=== PATIENT | male | born 1930 | race Caucasian/White ===

== ENCOUNTER 2016-10-29 00:51 | Inpatient (IN) | payer MEDICARE, OTHER ==
[~2016-10-29] VITALS: Ht 180.3 cm; Wt 83.1 kg
--- NOTE | ~2016-10-29 | HP ---
PATIENT'S NAME: REGINALD MENON [facility] AGE: 86 Y [address] ROOM: [address] [place], [place] [address] LOCATION: GPCU ADMIT DATE: 10/29/2016 History & Physical DISCHARGE DATE: FAMILY PHYSICIAN: Denny Mauro MD ATTENDING PHYSICIAN: Denny Mauro DATE OF SERVICE: CHIEF COMPLAINT: Chest pain. HISTORY OF PRESENT ILLNESS: The patient is an elderly 86-year-old male who looks much younger than his stated age. He has a longstanding history of coronary artery disease. He was feeling well. He woke up, between about 12 and 1 o'clock this morning and notes that he had mid anterior chest pain radiating to his left shoulder. He had no accompanying shortness of breath, diaphoresis, nauseousness, vomiting, or lightheadedness. He does have a history of atherosclerotic ischemic heart disease and had coronary artery disease, and has a previous AL, and he has had two stents placed. He denied any recent colds, coughs, flus, fevers, chills, or sweats, etc,. He denies any shortness of breath. He was seen in the emergency room. They did end up starting him on a nitroglycerin drip which did seem to help improve his symptoms. He has had stuttering chest pain throughout though. He was seen this morning by Dr. Diaz and Dr. Bhatt. He was taken to the catheterization lab. He was found to have some significant coronary artery disease. It looks like the main problem was his LAD and diagonal, and he had a PCI of that and they are going to recommend due to his kidney disease that he have a stage procedure, where he gets a PCI of his circumflex and OM on Monday. That is as long as his creatinine stays stable. He is being given acetylcysteine afterwards. During the night, he did have a little bit of a GI cocktail that did seem to help some of his symptoms. We did continue his current medications and added on an ZAN inhibitor and that as he had not been on one. He is on Brilinta 90 mg twice daily. The patient is feeling better. He still discusses the fact that he does have some vague chest discomfort. PAST MEDICAL HISTORY: ALLERGIES: HE IS MAINLY INTOLERANCE OF STATINS. HE ALSO HAS PROBLEMS WITH ACETAMINOPHEN, OXYCODONE, DARVOCET-N 100, AND HE HAS HAD PROBLEM WITH BOTH CRESTOR AND SIMVASTATIN. CURRENT MEDICATIONS: 1. He is on amlodipine 5 mg daily. PATIENT'S NAME: REGINALD MENON [facility] AGE: 86 Y [address] ROOM: [address] [place], [place] [address] [facility] ADMIT DATE: 10/29/2016 History & Physical DISCHARGE DATE: FAMILY PHYSICIAN: Denny Mauro MD ATTENDING PHYSICIAN: Denny Mauro 2. Dyazide 37.5/25, 1 daily. 3. Finasteride 5 mg daily. 4. Livalo 4 mg daily which he is tolerating. CHRONIC HEALTH PROBLEMS: Include: 1. History of intolerance of statins as mentioned above with myalgias on both simvastatin and Crestor. 2. He has a history of BPH. 3. He has had coronary artery disease, and he is status post stenting of the diagonal vessel on 12/20/2004 at DM1 and DM3. 4. He does have a history of chronic ischemic heart disease. 5. Chronic kidney disease, stage 3. 6. He has also had a history of an angioplasty back in 1990 due to an AL. 7. He has hyperlipidemia. 8. Hypertensive chronic kidney disease. 9. He has had some mild impaired fasting glucose. Diagnosed in 10/2015. PAST SURGICAL HISTORY: Principle procedures include: 1. Circumcision in 2000. 2. Colonoscopy back in 2004, which he does need a repeat of when needed. 3. He has had a DEXA scan that showed a T-score -0.7 at the hip and -0.6 at the lumbar spine. 4. He has had a heart catheterization in 2004, when he had stents placed. 5. He has had a left inguinal hernia repair. 6. A bone graft on his jaw by Dr. Maloney. 7. A stent in the diagonal in 2004. 8. A previous angioplasty back in 1990. 9. He has also had a tonsillectomy. SOCIAL HISTORY: The patient is a nondrinker and nonsmoker. 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 He does drink caffeine regularly. FAMILY HISTORY: Remarkable for cancer in the father and brother. Diabetes in a paternal grandmother. Hyperlipidemia and hypertension which are present in the patient's brother and mother. REVIEW OF SYSTEMS: CONSTITUTIONAL: The patient states that he was really feeling well up until this point. HEENT: Negative. LUNGS: Denies shortness of breath. PATIENT'S NAME: REGINALD MENON [facility] AGE: 86 Y [address] ROOM: [place] [address] LOCATION: GPCU ADMIT DATE: 10/29/2016 History & Physical DISCHARGE DATE: FAMILY PHYSICIAN: Denny Mauro MD ATTENDING PHYSICIAN: Denny Mauro CHEST: Did develop chest pain after midnight tonight which he describes as substernal, heaviness pressure, and radiates into his left arm. GASTROINTESTINAL: Otherwise, negative. GENITOURINARY: Otherwise negative, although we did give the patient some GI cocktail along with some Protonix and that did help some of his symptoms. PHYSICAL EXAMINATION: GENERAL: Shows an alert male, in no acute distress. VITAL SIGNS: He is afebrile and vital signs are stable. HEENT: Normal. LUNGS: Clear. HEART: Regular rate and rhythm. CHEST: Chest wall, no palpable tenderness. ABDOMEN: Bowel sounds positive. He is nontender and nondistended. EXTREMITIES: Negative. He has good peripheral pulses. LABORATORY DATA: The patient's total protein was 6.6, AST 18, ALT 25, alkaline phosphatase 58, total bilirubin 0.7, magnesium 2.4, and EGFR is 38. His glucose was 97, BUN 44, creatinine 1.7, sodium 140, potassium 3.4, chloride 105, CO2 of 28, and calcium 8.3. His CPKs have been 208, 184, 151, and 114. Troponin I's have been less than 0.040 x4. His CK-MB has been 2.5, 2.4, 1.7, and 1.0. Prothrombin time was 10.5 with an INR of 1 with a PTT of 26. His cholesterol this morning came back at 129, triglycerides 37, HDL 59, VLDL 7, and LDL 63 which is excellent. His white count is 8.7 with a hemoglobin of 12.8, hematocrit 37.4, and platelet count of 161,000 with a normal differential and indices. IMAGING STUDIES: X-ray and EKG, I believe showed no acute changes. His chest x-ray was interpreted as no vascular congestion or acute infiltrate on portable AP of the chest. ASSESSMENT: 1. Acute coronary syndrome with no signs of actual damage based on enzymes. 2. Hypertension. 3. Hypertensive chronic kidney disease, stage 3. 4. Hyperlipidemia with history of intolerance to simvastatin and Crestor. 5. History of coronary artery disease, status post angioplasty in 1990 and stents of the DM1 and DM3 on 12/20/2004. He did have a history of a myocardial infarction back in 1990. 6. Hyperlipidemia. 7. History of mild impaired fasting glucose. 8. History of benign prostatic hypertrophy. PATIENT'S NAME: REGINALD MENON [facility] AGE: 86 Y [address] ROOM: [place] [address] [facility] ADMIT DATE: 10/29/2016 History & Physical DISCHARGE DATE: FAMILY PHYSICIAN: Denny Mauro MD ATTENDING PHYSICIAN: Denny Mauro PLAN: We will continue patient's statin along with normal coronary pathway orders. Dr. Diaz and Dr. Bhatt have both seen the patient. The patient has actually already gone to catheterization lab and had intervention to his LAD and diagonal. Because of his kidney disease, they want to do a stage procedure because he does need further evaluation of his circumflex and OM. We will monitor his kidney function. He is on Mucomyst along with IV hydration. We will continue normal cardiac medications and follow the patient closely. I had a long discussion with the patient and his family and all questions were answered at this time. MD TONYA PEREZ/virginial /[id number] D: T: 343 HISTORY & PHYSICAL
--- NOTE | ~2016-10-29 | ER ---
PATIENT'S NAME: [facility] AGE: 86 Y [address] ROOM: [place] [address] LOCATION: GPCU ADMIT DATE: 10/29/2016 ER/Outpatient Report DISCHARGE DATE: FAMILY PHYSICIAN: Denny Mauro MD ATTENDING PHYSICIAN: Denny Mauro Admission date and time documented on the medical record. I saw the patient at 0100 hours. CHIEF COMPLAINT: Mid anterior chest pain, radiating to left shoulder. HISTORY OF PRESENT ILLNESS: The patient is an 86-year-old male, who was woken from sleep at midnight with mid anterior chest pain, radiating to his left shoulder. No accompanying shortness of breath, diaphoresis, nausea, vomiting, or lightheadedness. He does have a history of atherosclerotic ischemic heart disease and coronary artery disease. He has had a previous myocardial infarction. He has had 2 stents. No abdominal pain, nausea, vomiting, diarrhea, or urinary symptomatology. No recent colds, coughs, flus, fever, chills, or sweats. No headache, eyes, ears, nose, throat, neck, or spine pain. No fall or trauma. No joint or muscle swelling, redness, or pain. No skin eruptions or rash. No neuro changes, psych issues, endocrine problems. HOME MEDICATIONS: See attached medication list. ALLERGIES: DARVOCET, PERCOCET, CRESTOR. SOCIAL HISTORY: Nonsmoker, nondrinker. SIGNIFICANT PAST MEDICAL HISTORY: Atherosclerotic ischemic heart disease, coronary artery disease, status post myocardial infarction, syncope, dyslipidemia, benign prostatic hypertrophy, hypertension. OPERATIONS: Inguinal herniorrhaphy; cardiac catheterization with PTCA and stenting; hand surgery. REVIEW OF SYSTEMS: All systems reviewed by me are negative with the exception of those discussed in the history of present illness. PATIENT'S NAME: [facility] AGE: 86 Y [address] ROOM: [place] [address] LOCATION: GPCU ADMIT DATE: 10/29/2016 ER/Outpatient Report DISCHARGE DATE: FAMILY PHYSICIAN: Denny Mauro MD ATTENDING PHYSICIAN: Denny Mauro PHYSICAL EXAMINATION: VITAL SIGNS: Temperature 96.4, pulse 64, respirations 18, blood pressure 177/84, O2 saturation on room air is 97%. Ihsan Scale is 15. HEAD: Normocephalic. EYES, EARS, NOSE, THROAT: Clear. NECK: Negative. LUNGS: Clear. HEART: Regular. No chest wall or ribcage pain to palpation. ABDOMEN: Soft, nontender. Good bowel tones. No organomegaly or abnormal mass palpable. EXTREMITIES: Intact. NEUROVASCULAR: Intact. SKIN: Clear. No skin eruptions or rash. LABORATORY DATA AND X-RAYS: EKG showed sinus rhythm, first-degree AV block. No acute ST elevation, ischemic change, or arrhythmia. Chest x-ray showed no acute infiltrate or changes. We will review x-ray with the radiologist. Laboratory: White count is 8700, 58 segs, 28 lymphs, 9 monos, 4 eos, 1 baso, hemoglobin is 12.8, hematocrit 37.4, platelet count is 161,000. PTT is 26, pro-time is 10.5, and INR 1. CMS was normal except for low calcium 8.3, elevated BUN of 44, elevated creatinine 1.7, low GFR 38. Magnesium of 2.4. CPK was 208. Vksmi-xs-roju cardiac enzymes were normal. EMERGENCY DEPARTMENT COURSE: The patient took aspirin at home. He was started on IV nitroglycerin drip with improvement. IMPRESSION: 1. Chest pain with unstable angina, mid anterior chest pain radiating to the left shoulder. 2. Renal insufficiency. 3. Hypertension. 4. Dyslipidemia. PLAN: Discussed the patient with Dr. Ma for Dr. Mauro. We will admit the patient to PCU telemetry for further evaluation and treatment. Discussion ensued with the patient concerning my findings and recommendations, he understands. PATIENT'S NAME: REGINALD MENON [facility] AGE: 86 Y [address] ROOM: [place] [address] [facility] ADMIT DATE: 10/29/2016 ER/Outpatient Report DISCHARGE DATE: FAMILY PHYSICIAN: Denny Mauro MD ATTENDING PHYSICIAN: Denny Mauro HARPREET LOPEZ MD SDS/modl /[id number] d: 10/29/16 0412 t: 11/01/16 1820, OUTPATIENT REPORT
--- NOTE | ~2016-10-29 | CATH ---
Cardiac Diagnostic + PCI Report Demographics Patient Name LYNSEY Colby Gender Male Date of 1930 Age 86 year(s) Patient Number [id number] Date of Study 10/29/2016 Visit Number [id number] Room Number G[address] [place] [id number] Ht 180.34 cm Wt 78 kg Referring Zunilda Hernandez MD Primary Physician Physician Performing [facility] Secondary Physician Physician Nova Carroll Diagnostic [facility] Assisting Physician Physician Carly Interventional [facility] Physician Shoe Cobbler Physician Nova BAKER Findings and Conclusions Diagnostic Findings and Conclusion L Main: distal 40% stenosis (Non obstructive on iFR) LAD: Proximal at 1st septal branch 70-80% stenosis, mid 50-60% diffuse stenosis. Diagonal ostium has anurysmal dilatation Cx: Proximal 70% stenosis, previous stent in mid Cx is patent OM1 proximal 70-80% stenosis RCA:Dominant; Proximal 30% stenosis, mid 30% stenosis, PLV distally 70% stenosis (small vessel) Diagnostic Recommendations iFR LM, LAD,OM Interventional Findings and Conclusion iFR LM 0.98 iFR LAD 0.83 PCI of LAD given physiologically significant iFR Interventional Recommendations s/p PCI of mLAD with MIRLANDE, distal to edge there is a non flow limiting dissection involving the diagonal side branch, given it is a large sized branch, I placed a MIRLANDE stent at the site of dissection Will stage PCI of Cx/OM on Monday given CKD stage 3 DAPT IV hydration and follow up creatinine Procedure Description The patient was brought to the diagnostic cardiac catheterization-EP laboratory in the fasting, non-sedated state. Informed consent was obtained in the written and verbal form after the risks and benefits were explained. The patient had no further questions and agreed to proceed. The planned puncture-incision site(s) were shaved and prepped with ChloraPrep and draped in the usual sterile manner. Conscious sedation, supplemental oxygen, and pain control medications were delivered by a registered nurse under physician guidance. Surface ECG rhythm, blood pressure measurement, and pulse oximetry were monitored throughout the procedure. Arterial access. The access site on right wrist was infiltrated with lidocaine. The vessel was entered with the Seldinger technique. A sheath was advanced into the vessel and used for catheter placement. Selective left coronary angiography. A catheter was advanced into the left coronary vessel ostium under Fluoroscopic guidance. Contrast was injected by hand. Images were obtained in multiple projections. Selective right coronary angiography. A catheter was advanced into the right coronary vessel ostium under fluoroscopic guidance. Contrast was injected by hand. Images were obtained in multiple projections. iFR measurement was performed. The vessel was entered with a guiding catheter. The iFR wire was normalized and then advanced across the lesion. Measurements were taken in LM, LAD and OM. Angioplasty and Stent Placement: A guiding catheter was used to intubate the vessel. A 0.14 wire was then used to cross the lesion. A balloon catheter was placed across the lesion and inflated. The balloon catheter was then removed. A Drug Eluting Stent was placed and inflated. Post placement angiograms were performed. Arterial artery hemostasis was achieved. The patient was transferred to a regular nursing floor via cart accompanied by a nurse. The patient left the laboratory in stable condition. Diagnostic Cath Status: Urgent Interventional Cath Status: Urgent Procedure Procedure Type Diagnostic procedure:Angiography:, Coronary Angios w/[facility] PCI procedure:Drug Eluting Coronary Stent:, LAD, Additional Imaging:, FFR/iFR:, Initial Vessel, Add'l Vessel Indications: Chest pain. The procedure was explained in detail to the patient. Risks, complications and alternative treatments were reviewed. Written consent was obtained. Medications Reviewed with Patient prior to Procedure. Angiographic Findings Dominance: Right Cardiac Arteries and Lesion Findings LMCA: Lesion on LMCA: Distal subsection.30% stenosis . Pre procedure CRISTOBAL III flow was noted. Post Procedure CRISTOBAL II flow was present. The guidewire cross was successful. FFR + + + + !FFR !Stage/Medication !Dosage ! + + + + !0.98 ! ! ! + + + + Devices used - Verrata Pressure Wire. Number of passes: 1. LAD: Lesion on Mid LAD: Mid subsection.70% stenosis 20 mm length . Pre procedure CRISTOBAL III flow was noted. Post Procedure CRISTOBAL III flow was present. The guidewire cross was successful.The lesion was diagnosed as a high risk lesion.Culprit lesion. FFR + + + + !FFR !Stage/Medication !Dosage ! + + + + !0.83 ! ! ! + + + + Treatment results:Dissection occurred while intervening.It was treated with a stent. Devices used - Verrata Pressure Wire. Number of passes: 1. - Runthrough NS .014 x 180. Number of passes: 1. - Promus Premier 3.0 x 24 Stent. 2 inflation(s) to a max pressure of: 14 zoila. - Emerge Balloon 2.0 x 12. 1 inflation(s) to a max pressure of: 6 zoila. - Runthrough NS .014 x 180. Number of passes: 1. - Emerge Balloon 2.5 x 12. 1 inflation(s) to a max pressure of: 6 zoila. Lesion on 1st Diag: Ostial. reduced to 0%. Pre procedure CRISTOBAL III flow was noted. Post Procedure CRISTOBAL III flow was present. The guidewire cross was successful.The lesion was diagnosed as a high risk lesion. Treatment results:Dissection occurred while intervening.It was treated with a stent. Devices used - Promus Premier 2.25 x 12 Stent. 2 inflation(s) to a max pressure of: 8 zoila. LCx: Lesion on 1st Ob Kary: Proximal subsection.90% stenosis . FFR + + + + !FFR !Stage/Medication !Dosage ! + + + + !0.95 ! ! ! + + + + Devices used - bizk.itrata Pressure Wire. Number of passes: 1. Lesion on Mid CX: Mid subsection.80% stenosis . Lesion on Ob Kary: RCA: PDA normal Lesion on Mid RCA: Mid subsection.40% stenosis . Lesion on 1st RPL: Mid subsection.40% stenosis . Coronary Tree Procedure Data Procedure Date Date: 10/29/2016Start: 11:57 AMEnd: 01:28 PM Entry Locations - Retrograde Percutaneous access was performed through the Right Radial artery (Primary location). A 6 Fr sheath was inserted. Unsuccessful closure attempt was performed using: an R band. Hemostasis was successfully obtained using Mechanical Compression. Closure Comments: R) band applied by Juan, 13 ml of air.. Procedure Medications Order and Administration + + + + + !Time !Medication !Dosage !Route ! + + + + + !10/29/2016 11:53 !Versed !1 mg !I.V. ! !AM ! ! ! ! + + + + + !10/29/2016 11:56 !Oxygen !2 l/min !NC ! !AM ! ! ! ! + + + + + !10/29/2016 12:03 !Radial Nitroglycerin !200 mcg !I.A. ! !PM ! ! ! ! + + + + + !10/29/2016 12:03 !Radial Verapamil !2.5 mg !I.A. ! !PM ! ! ! ! + + + + + !10/29/2016 12:04 !Nitroglycerin ! ! ! !PM ! ! ! ! + + + + + 10/29/2016 12:05 !Heparin (ACC_3) !3000 units !I.V. ! !PM ! ! ! ! + + + + + !10/29/2016 12:06 !0.9% NaCl !500 ml !I.V. bolus ! !PM ! ! ! ! + + + + + 10/29/2016 12:31 !Angiomax (Bivalirudin) !60 mg !I.V. bolus ! !PM !(ACC_5) ! ! ! + + + + + 10/29/2016 12:32 !Angiomax (Bivalirudin) !1.75 mg/kg/hr!I.V. bolus ! !PM !(ACC_5) ! ! ! + + + + + !10/29/2016 01:22 !Brilinta (Ticagrelor) !180 mg !P.O. ! !PM !(ACC_20) ! ! ! + + + + + Devices Used - A5 Fr. BS JR 4 Diag. Catheterwas used for:Right coronary angiography. - A5 Fr. BS JL 3.5 Diag. Catheterwas used for:Left coronary angiography. - A6 Fr. EBU 3.5 Guide Catheterwas used for:Fractional Flow Thorpe measurments. Contrast Material - Isovue [id number] ml Fluoroscopy Time: Diagnostic: 21:12 minutes. Total: 21:12 minutes. Fluoroscopy Dose: Diagnostic: 2365 mGy. Total: 2365 mGy. Estimated Blood Loss: 10 ml. Additional [facility] PCI Information PCI Indication:PCI for high risk Non-STEMI or unstable angina. Medical History Performed Procedures and Imaging Results - No [facility] stress or imaging studies were performed. Allergies - Other:(Percocet, Darvocet and Crestor). Risk Factors The patient risk factors include:prior PCI on 10/29/2016;hypercholesterolemia, hypertension, last creatinine: 1.7 mg/dl, creatinine clearance: 35.05 ml/min, dyslipidemia and prior [place] . Admission Data Admission Date: 10/29/2016 Admission Time: 02:18 AM Admit Source: Emergency department Insurance Payors: Medicare. Admission Medications + +------+-----+---------+---------+ + + !Medication !Dosage!Times!Last !Last !Administered !Comments ! ! ! !Per !Delivery !Delivery ! ! ! ! ! !Day !Date !Time ! ! ! + +------+-----+---------+---------+ + + !ZAN Inhibitor ! ! ! ! !Yes ! ! !(any) ! ! ! ! ! ! ! + +------+-----+---------+---------+ + + !Aspirin (any) ! ! ! ! !Yes ! ! + +------+-----+---------+---------+ + + !Nitrates (iv or! ! ! ! !Yes ! ! !buccal) ! ! ! ! ! ! ! + +------+-----+---------+---------+ + + !Beta Stevo ! ! ! ! !Yes ! ! !(any) ! ! ! ! ! ! ! + +------+-----+---------+---------+ + + !Unfractionated ! ! ! ! !Yes ! ! !Heparin (any) ! ! ! ! ! ! ! + +------+-----+---------+---------+ + + !Bivalirudin ! ! ! ! ! ! ! + +------+-----+---------+---------+ + + Clinical Evaluation Leading to Procedure - The patient's CAD presentation was assessed as: Unstable angina. - The patient's anginal syndrome during the past two weeks was assessed as: Class III according to the [place] Cardiovascular Society Classification System (CCS). Anti-anginal medications were prescribed during the past two weeks. The medication is: Beta Blockers. - The patient has been in a state of heart failure within the past two weeks. - The patient's heart failure status was assessed as NYHA Class IV. VA LV function assessed . Hemodynamics Condition: Rest O2 Consumption: Estimated: 239.21Heart Rate: 89 bpm Pressures (mmHg) +-----+ + !Site !Pressure ! +-----+ + !AO !80/54 (67) ! +-----+ + !AO !120/36 (54) ! +-----+ + Shunts Oxygen Values O2 Capacity 174.08 O2 Consumption 239.21 Signatures dtt: CARLY NESBITT dtd: 10/29/16 1157 Physician Self Edit
--- NOTE | ~2016-10-29 | ER ---
PATIENT'S NAME: REGINALD MENON [facility] AGE: 86 Y [address] ROOM: [place] [address] [facility] AD[facility] DATE: 10/29/2016 ER/Outpatient Report DISCHARGE DATE: FAMILY PHYSICIAN: Denny Mauro MD ATTENDING PHYSICIAN: Denny Mauro ADDENDUM: Accumulated critical care time was 30 minutes. MD HE LLANES/modl /[id number] d: 10/29/16 0509 t: 11/01/16 1822, OUTPATIENT REPORT
--- NOTE | ~2016-10-29 | ECHO ---
Transthoracic Echocardiography Report (TTE) Demographics Patient Name REGINALD MENON Date of Study 10/31/2016 Patient Number [id number] Visit Number [id number] Date of 1930 Room Number G6303 Gender Male Number Age 86 year(s) Referring Anders Bhatt High Lighter Gregg Jorge RVT Physician Physician Interpreting Anders Bhatt Car Tester Physician Supervising Ordering Tammy Colby MD/MLP Physician Nurse Stress Hydro Technician Conclusions Contractility Score Summary Normal Left Ventricular contractility was noted. Summary Normal LV size and systolic function. The estimated left ventricular ejection fraction is 55-60%. Mild concentric left ventricular hypertrophy. Trivial pericardial effusion. Procedure Type of Study TTE procedure:Echo Limited w/o Contrast. Procedure Date Date: 10/31/2016 Start: 09:17 AM Study Location: Inpatient Portable Technical Quality: Adequate visualization Indications:Chest pain. Appropriate Use Criteria: 9 Patient Status: Routine HR: 70 bpm BP: 166/79 mmHg Allergies - Other:(Percocet, Darvocet and Crestor). M-Mode/2D Measurements LV Diastolic Dimension: 3.35 cm LV Systolic Dimension: 2.13 cm LV Septum Diastolic: 1.67 cm LV PW Diastolic: 1.35 cm AO Root Dimension: 2.3 cm AV Cusp Separation: 1.9 cm RV Diastolic Dimension: 2.89 cm LA Dimension: 3.2 cm LVOT: 2 cm Doppler Measurements AV Peak Velocity: 1.02 m/s AV Peak Gradient: 4.16 mmHg TR Velocity:2.42 m/s TR Gradient:23.43 mmHg Findings Left Ventricle Mild concentric left ventricular hypertrophy. Pericardial Effusion Trivial pericardial effusion. Pleural Effusion Possible pleural effusion. Contractility Score LV regional wall motion:(0-Non visualized 1-Normal 2-Hypokinesis 3-Akinesis 4-Dyskinesis 5-Aneurysm) Signature dtt: CHUCKY JARQUIN dtd: 10/31/16916 Physician Self Edit
--- NOTE | ~2016-10-29 | CON ---
[facility] 86 [facility] [address] ROOM: [place] [address] LOCATION: GPCU ADMIT DATE: 10/29/2016 Consultation DISCHARGE DATE: FAMILY PHYSICIAN: Denny Mauro MD ATTENDING PHYSICIAN: Denny Mauro REFERRING PHYSICIAN: SHIV NESBITT MD REASON FOR CONSULT: Chest pain. HISTORY AND PHYSICAL: Mr. Katz is a very pleasant 86-year-old male with history of coronary artery disease, status post percutaneous intervention several years ago. The patient has been symptomatic since last night. The patient stated that he woke up at around 2 a.m. in the morning with substernal chest pain. The patient was given 2 sublingual nitroglycerin; however, the pain persisted. He was subsequently admitted due to persistent chest pain. He was started on heparin and nitro drip. The pain continued and hence Cardiology was consulted. The patient is physically very active. REVIEW OF SYSTEMS: The patient denies any recent visual changes. No history of nausea or vomiting. No history of fever. No history of cough or expectoration. No history of diarrhea. No history of leg pains or leg cramps. No history of syncope. Review of other systems was essentially negative. PAST MEDICAL HISTORY: 1. Coronary artery disease, status post percutaneous intervention several years ago with placement of 2 stents. 2. History of myocardial infarction in the past. 3. BPH. 4. Dyslipidemia. 5. Hypertension. PAST SURGICAL HISTORY: Inguinal herniorrhaphy. PERSONAL HISTORY: Nonsmoker, non-alcoholic. SOCIAL HISTORY: The patient is . Lives with his . FAMILY HISTORY: No family history of premature coronary artery disease. His mother at the age of around 106. His father had cancer. [facility] AGE: 86 Y [address] ROOM: [place] [address] LOCATION: GPCU ADMIT DATE: 10/29/2016 Consultation DISCHARGE DATE: FAMILY PHYSICIAN: Denny Mauro MD ATTENDING PHYSICIAN: Denny Mauro CURRENT MEDICATIONS: As per MAR. PHYSICAL EXAMINATION: GENERAL: On examination, he is awake, alert, and oriented and in no distress. VITAL SIGNS: His pulse rate is 52 beats per minute, blood pressure is 144/70, respiratory rate 18. HEENT: His head is atraumatic and normocephalic. Pupils are bilaterally equal and reactive. Oral mucosa is moist. NECK: No significant jugular venous distention is present. CARDIOVASCULAR: S1 and S2 are audible. They are regular in rate and rhythm. Grade 2/6 ejection systolic murmur is audible in the left parasternal area. RESPIRATORY: Bilateral vesicular breath sounds are audible. ABDOMEN: Abdomen is soft and nontender. Bowel sounds are present. CHEST: The patient does not have any reproducible chest pain. EXTREMITIES: Show no significant pedal edema. NEUROLOGIC: The patient is awake and alert and oriented. No focal neurological deficits noted. SKIN: Skin is warm and dry. LABORATORY DATA: Sodium 140, potassium 3.4, chloride 105, CO2 of 28, BUN 44, creatinine 1.7, AST 18, ALT 25, total cholesterol 129, HDL 59, LDL 63, CPK 114, CK-MB 1, troponin less than 0.04. White blood cell count 8.7, hemoglobin 12.8, platelet count 161. His EKG showed sinus bradycardia at 57 beats per minute. ASSESSMENT: 1. Unstable angina. 2. Coronary artery disease, status post percutaneous coronary intervention. 3. Hypertension. 4. Chronic kidney disease. PLAN: We will continue medical therapy with heparin and nitro drip. Continue aspirin and beta-blockers as tolerated. In view of persistent pain despite medical therapy for unstable angina, we will proceed with left heart catheterization. Discussed with the patient in detail the risks and benefits of heart catheterization and percutaneous intervention. The patient wants to proceed with it. In view of chronic kidney disease with abnormal renal function, the patient is at higher risk for contrast-induced nephropathy, and all this was explained to the patient in detail. We will also obtain 2D [facility] AGE: 86 Y [address] ROOM: G6303 [place], [place] [address] [facility] AD[facility] DATE: 10/29/2016 Consultation DISCHARGE DATE: FAMILY PHYSICIAN: Denny Mauro MD ATTENDING PHYSICIAN: Denny Mauro echocardiogram. Correct hypokalemia. We will make further recommendations depending on the results of this cardiac catheterization and echocardiogram. Thank you Dr. Ma for allowing us in taking part in the care of this pleasant patient. The plan of care was discussed with the patient and his family. MD LYSSA MOYA/steven /[id number] d: 10/29/16 2136 t: 11/03/16 1040, CONSULTATION REPORT
--- NOTE | ~2016-10-29 | DS ---
[facility] A[facility] 86 Y [address] ROOM: [place] [address] LOCATION: GPCU ADMIT DATE: 10/29/2016 Discharge Summary DISCHARGE DATE: 11/01/2016 FAMILY PHYSICIAN: Denny Mauro MD ATTENDING PHYSICIAN: Denny Mauro DISCHARGE DIAGNOSES: 1. Unstable angina with acute coronary syndrome and myocardial infarction. 2. Status post cardiac catheterization x2 with placement of a total of 4 stents. First time, he had a stent placed in the LAD and diagonal, and the second, when the patient had a worsening acute coronary syndrome, was in the circumflex and obtuse marginal. SECONDARY DIAGNOSES: 1. Chronic kidney disease, stage 3. 2. Paroxysmal atrial fibrillation. 3. Hypertension. 4. Hyperlipidemia. 5. History of coronary artery disease. 6. Prediabetes. 7. Benign prostatic hypertrophy. 8. History of intolerance to statins. FOLLOWUP: With Dr. Nova Mcnamara from [facility] in [address] Denny Mauro on at which time he should have a prothrombin time, BMP, and INR. He is also to go home to cardiac rehab. DISCHARGE DIET: Cardiac-prudent diet. ACTIVITY: As tolerates other than normal resting groin precautions from his recent catheterization. DISCHARGE MEDICATIONS: Include: 1. Aspirin, enteric coated, 81 mg daily. 2. Plavix 75 mg daily. 3. Enalapril 2.5 mg at h.s. 4. We are discontinuing his amlodipine. 5. Finasteride 5 mg daily. 6. Metoprolol tartrate 25 mg p.o. b.i.d., which is a new medicine. 7. He is to continue his fish oil. 8. We have him on warfarin 5 mg daily, which is a new medication due to atrial fibrillation, which he has converted from. 9. Livalo 4 mg daily. 10. Triamterene and hydrochlorothiazide 37.5/25 one p.o. q.a.m., #30, with 3 refills. [facility] AGE: 86 Y [address] ROOM: [place] [address] LOCATION: GPCU ADMIT DATE: 10/29/2016 Discharge Summary DISCHARGE DATE: 11/01/2016 FAMILY PHYSICIAN: Denny Mauro MD ATTENDING PHYSICIAN: Denny Mauro PRINCIPAL PROCEDURES: Include cardiac catheterization x2 with placement of a total of 4 drug-eluting stents. He also had an echocardiogram. The patient's echo showed normal left ventricular contractility. Normal LV size and systolic function. LVEF was 55% to 60%. He had mild concentric LVH, trivial pericardial effusion. The patient had cardiac catheterization which showed 4- vessel disease with LAD, diagonal, circumflex, and obtuse marginal. Dr. Nova Mcnamara initially planned on doing a staged procedure. She thought it was mainly the LAD that was causing the problem. So, she put a drug-eluting stent in his LAD and diagonal. Due to his chronic kidney disease, they did not want to give him too much dye. So, they did the initial catheterization on Monday, and the plan was to turn around and do a repeat catheterization on Monday. Unfortunately, the patient's symptoms worsened, and his enzymes started to bump. So, she took him back to the pharmaceutical laboratory technician and then put drug-eluting stents in both the circumflex and obtuse marginal. Since that time, things have continued to improve. His enzymes reached a peak of a CPK of 431, CK-MB peak of 29, and troponin-I peaked at 16.6. The patient's creatinine on discharge is 1.7. HOSPITAL COURSE: As mentioned, the patient was admitted with acute coronary syndrome and was placed on nitroglycerin and heparin. His symptoms persisted. So, he was taken to the pharmaceutical laboratory technician and had stents placed as mentioned in the LAD and diagonal. His symptoms persisted and worsened, and then he was taken back to the pharmaceutical laboratory technician, and they were placed in the circumflex and obtuse marginal. He has done well since that time. He did go into atrial fibrillation. He was started on warfarin. He was on heparin. He also seemed to have some shortness of breath on the Brilinta. So, he was given a loading dose of Plavix and started on Plavix 75 daily. We have adjusted his cardiac medications, and he is overall doing well. He has been up ambulating and is ready for home. We will plan on dismissing him after noon on 11/01/2016 with the above-mentioned medications with followup as mentioned above. He does not have a history of smoking. He does have a previous history though of coronary artery disease. CONDITION ON DISCHARGE: Good. MD TONYA PEREZ/steven /[id number] d: 11/01/16 1731 t: 11/16/16 1346, DISCHARGE SUMMARY
--- NOTE | ~2016-10-29 | CATH ---
Cardiac Diagnostic + PCI Report Demographics Patient Name LYNSEY Colby Gender Male Date of 1930 Age 86 year(s) Patient Number [id number] Date of Study 10/29/2016 Visit Number [id number] Room Number G6[address] [place] [id number] Ht 180.34 cm Wt 78 kg Referring Zunilda Hernandez MD Primary Physician Physician Performing [facility] Secondary Physician Physician Nova BAKER Diagnostic [facility] Assisting Physician Physician Nova BAKER Interventional [facility] Physician Supervisor Particleboard Physician Nova BAKER Findings and Conclusions Diagnostic Findings and Conclusion ACS/Critical Lesion in CX and OM1 with ongoing chest pain. Diagnostic Recommendations PCI of CX and OM1 Interventional Findings and Conclusion S/P PCI of CX and OM1 with MIRLANDE, promus premier 2.5/16 in OM1 and 2.75/24 in prox/mid Cx with excellent results. Interventional Recommendations Patient will be observed overnight. Hydration and followup creatinine. Patient has been instructed to not lift anything more than 5 pounds for 1 week. Aggressive risk factor management. ASA. Statin. Beta Stevo. Alvin Inhibitor. Aggressive control of blood pressure. Patient was transferred to PCU in stable condition. Dual Anti-platelet therapy. Optimization of medical therapy as an outpatient. Cardiac diet . Referral to Cardiac Rehabilitation now and at discharge . I would like to thank Dr. Ma/Dr Mauro for the opportunity to participate in the care of Mr. Katz . Procedure Description The patient was brought to the diagnostic cardiac catheterization-EP laboratory in the fasting, non-sedated state. Informed consent was obtained in the written and verbal form after the risks and benefits were explained. The patient had no further questions and agreed to proceed. The planned puncture-incision site(s) were shaved and prepped with ChloraPrep and draped in the usual sterile manner. Conscious sedation, supplemental oxygen, and pain control medications were delivered by a registered nurse under physician guidance. Surface ECG rhythm, blood pressure measurement, and pulse oximetry were monitored throughout the procedure. Arterial access. The access site was infiltrated with lidocaine. The vessel was entered with the Seldinger technique. A sheath was advanced into the vessel and used for catheter placement. Selective left coronary angiography. A catheter was advanced into the left coronary vessel ostium under Fluoroscopic guidance. Contrast was injected by hand. Images were obtained in multiple projections. Angioplasty and Stent Placement: A guiding catheter was used to intubate the vessel. A 0.14 wire was then used to cross the lesion. A balloon catheter was placed across the lesion and inflated. The balloon catheter was then removed. A Drug Eluting Stent was placed and inflated. Post placement angiograms were performed. Arterial artery hemostasis was achieved. The patient was transferred to a regular nursing floor via cart accompanied by a nurse. The patient left the laboratory in stable condition. Diagnostic Cath Status: Urgent Interventional Cath Status: Urgent Procedure Procedure Type Diagnostic procedure:Angiography:, Coronary Angios PCI procedure:Drug Eluting Coronary Stent:, CFX, OM, PTCA:, CFX, OM Indications: Chest pain. The procedure was explained in detail to the patient. Risks, complications and alternative treatments were reviewed. Written consent was obtained. Medications Reviewed with Patient prior to Procedure. Angiographic Findings Dominance: Right Cardiac Arteries and Lesion Findings LAD: Patent Stents in LAD and DIAGThere is a previous stent on Mid LAD Mid subsection showing wide patency. There is a previous stent on 1st Diag Ostial showing wide patency. LCx: Lesion on 1st Ob Kary: Proximal subsection.80% stenosis 15 mm length reduced to 0%. Pre procedure CRISTOBAL III flow was noted. Post Procedure CRISTOBAL III flow was present. The guidewire cross was successful.The lesion was diagnosed as a moderate risk lesion.Culprit lesion. Devices used - Runthrough NS .014 x 180. Number of passes: 1. - Emerge Balloon 2.5 x 15. 1 inflation(s) to a max pressure of: 6 zoila. - Promus Premier 2.5 x 16 Stent. 1 inflation(s) to a max pressure of: 12 zoila. Lesion on Prox CX: Proximal subsection.80% stenosis 24 mm length reduced to 0%. Pre procedure CRISTOBAL III flow was noted. Post Procedure CRISTOBAL III flow was present. The guidewire cross was successful.The lesion was diagnosed as a moderate risk lesion.Culprit lesion. Devices used - Runthrough NS .014 x 180. Number of passes: 1. - Emerge Balloon 2.5 x 15. 2 inflation(s) to a max pressure of: 6 zoila. - Balloon of Promus Premier 2.75 x 24 Stent. 1 inflation(s) to a max pressure of: 12 zoila. - Promus Premier 2.75 x 24 Stent. 1 inflation(s) to a max pressure of: 12 zoila. RCA: Not Done Coronary Tree Procedure Data Procedure Date Date: 10/29/2016Start: 07:40 PMEnd: 08:43 PM Entry Locations - Retrograde Percutaneous access was performed through the Right Radial artery. A 4 Fr sheath was inserted. Unsuccessful closure attempt was performed using: a Coban dressing following sheath removal. Hemostasis was successfully obtained using Manual Compression. Closure Comments: Dr. Carter. - Retrograde Percutaneous access was performed through the Right Femoral artery (Primary location). A 6 Fr sheath was inserted. Hemostasis was successfully obtained using a pressurized flush bag which was connected to the sheath and it was sutured in place . Closure Comments: Keith. Procedure Medications Order and Administration + + + + + !Time !Medication !Dosage !Route ! + + + + + !10/29/2016 07:30 !0.9% NaCl !100 ml/hr !I.V. drip ! !PM ! ! ! ! + + + + + !10/29/2016 07:33 !Zofran !8 mg !I.V. ! !PM ! ! ! ! + + + + + !10/29/2016 07:37 !Fentanyl !50 mcg !I.V. ! !PM ! ! ! ! + + + + + !10/29/2016 07:46 !Oxygen !2 l/min !NC ! !PM ! ! ! ! + + + + + !10/29/2016 08:09 !Angiomax (Bivalirudin) !60 mg !I.V. bolus ! !PM !(ACC_5) ! ! ! + + + + + 10/29/2016 08:09 !Angiomax (Bivalirudin) !1.75 mg/kg/hr!I.V. drip ! !PM !(ACC_5) ! ! ! + + + + + !10/29/2016 08:33 !Oxygen ! !NC ! !PM ! ! ! ! + + + + + Devices Used - A6 Fr. EBU 3.75 Guide Catheterwas used for:Left coronary angiography. Contrast Material - Isovue 87149 ml Fluoroscopy Time: Diagnostic: 8:30 minutes. Total: 8:30 minutes. Fluoroscopy Dose: Diagnostic: 1008 mGy. Total: 1008 mGy. Estimated Blood Loss: 10 ml. Additional [facility] PCI Information PCI Indication:PCI for high risk Non-STEMI or unstable angina. Medical History Performed Procedures and Imaging Results - No [facility] stress or imaging studies were performed. Allergies - Other:(Percocet, Darvocet and Crestor). Risk Factors The patient risk factors include:prior PCI on 10/29/2016;hypercholesterolemia, hypertension, last creatinine: 1.7 mg/dl, creatinine clearance: 35.05 ml/min, dyslipidemia and prior SD . Admission Data Admission Date: 10/29/2016 Admission Time: 02:18 AM Admit Source: Emergency department Insurance Payors: Medicare. Admission Medications + +------+-----+---------+---------+ + + !Medication !Dosage!Times!Last !Last !Administered !Comments ! ! ! !Per !Delivery !Delivery ! ! ! ! ! !Day !Date !Time ! ! ! + +------+-----+---------+---------+ + + !ALVIN Inhibitor ! ! ! ! !Yes ! ! !(any) ! ! ! ! ! ! ! + +------+-----+---------+---------+ + + !Aspirin (any) ! ! ! ! !Yes ! ! + +------+-----+---------+---------+ + + !Nitrates (iv or! ! ! ! !Yes ! ! !buccal) ! ! ! ! ! ! ! + +------+-----+---------+---------+ + + !Beta Stevo ! ! ! ! !Yes ! ! !(any) ! ! ! ! ! ! ! + +------+-----+---------+---------+ + + !Unfractionated ! ! ! ! !Yes ! ! !Heparin (any) ! ! ! ! ! ! ! + +------+-----+---------+---------+ + + !Bivalirudin ! ! ! ! ! ! ! + +------+-----+---------+---------+ + + Clinical Evaluation Leading to Procedure - The patient's CAD presentation was assessed as: Unstable angina. - The patient's anginal syndrome during the past two weeks was assessed as: Class III according to the [place] Cardiovascular Society Classification System (CCS). Anti-anginal medications were prescribed during the past two weeks. The medication is: Beta Blockers. - The patient has been in a state of heart failure within the past two weeks. - The patient's heart failure status was assessed as NYHA Class IV. Hemodynamics Condition: Rest O2 Consumption: Estimated: 229.03Heart Rate: 76 bpm Pressures (mmHg) +-----+ + !Site !Pressure ! +-----+ + !AO !114/48 (77) ! +-----+ + Shunts Oxygen Values O2 Capacity 174.08 O2 Consumption 229.03 Discharge Data Discharge Date: 11/01/2016 Hospital Status: Inpatient Signatures dtt: NOVA JARQUIN dtd: 10/29/161939 Physician Self Edit
--- NOTE | ~2016-10-29 | ECHO ---
Transthoracic Echocardiography Report (TTE) Demographics Patient Name REGINALD MENON Date of Study 10/29/2016 Patient Number [id number] Visit Number [id number] Date of 1930 Room Number G6303 Accession Number [id number] Gender Male Age 86 year(s) Referring Zunilda Hernandez MD Pick Up Janny Figueredo RVT, Physician NASIR Physician Interpreting Anders Bhatt Body Builder Physician Supervising Ordering Physician Anil Hernandez MD/MLP Nurse Stress Technology Professional Conclusions Contractility Score Summary Normal Left Ventricular contractility was noted. Summary Normal LV/RV size and systolic function .The estimated left ventricular ejection fraction is 60-65%. Mild concentric left ventricular hypertrophy. Diastolic assessment reveals Grade I diastolic dysfunction. No significant valvular abnormalities. No evidence of pericardial effusion. Procedure Type of Study TTE procedure:2D Echocardiogram. Procedure Date Date: 10/29/2016 Start: 09:33 AM Study Location: Inpatient Portable Technical Quality: Adequate visualization Indications:Chest pain. Appropriate Use Criteria: 8 Patient Status: Routine Rhythm: NSR HR: 75 bpm BP: 115/58 mmHg Allergies - Other:(Percocet, Darvocet and Crestor). M-Mode/2D Measurements LV Diastolic Dimension: 4.59 cm LV Systolic Dimension: 2.34 cm LV Septum Diastolic: 1.12 cm LV PW Diastolic: 1.05 cm AO Root Dimension: 2.6 cm Cardiac Output: 5.45 l/min AV Cusp Separation: 1.9 cm RV Diastolic Dimension: 2.89 cm LA volume: 46 ml LVOT: 2.3 cm RV Base: 3.3 cm LVOT VTI: 17.5 cm RV Mid: 3.26 cm LV Stroke volume: 72.67 ml TAPSE: 2.52 cm TDI-S': 11.4 cm/s Doppler Measurements AV Peak Velocity: 1.59 m/s MV Peak E-Wave: 0.81 m/s AV Peak Gradient: 10.11 mmHg MV Peak A-Wave: 0.87 m/s AV Mean Gradient: 5 mmHg MV E/A Ratio: 0.92 LVOT Peak Velocity: 0.76 m/s MV P1/2t: 75 msec TR Gradient:31.58 mmHg PV Peak Velocity: 0.88 m/s Estimated RAP:5 mmHg PV Peak Gradient: 3.06 mmHg Estimated RVSP: 37 mmHg Estimated PASP: 36.58 mmHg E' Septal Velocity: 0.06 m/s A' Septal Velocity: 0.1 m/s E' Lateral Velocity: 0.09 m/s A' Lateral Velocity: 0.1 m/s Findings Left Ventricle Mild concentric left ventricular hypertrophy. Diastolic assessment reveals Grade I diastolic dysfunction. Right Ventricle Normal right ventricle structure and function. Left Atrium Normal left atrial size. There is no evidence of patent foramen ovale or atrial septal defect by color Doppler. Right Atrium Normal right atrial size. IVC measures 1.62 cm with inspiratory collapse. Mitral Valve Normal mitral valve structure and function. Trivial mitral regurgitation by color Doppler. Aortic Valve The aortic valve is mildly sclerotic. There is trivial aortic regurgitation by color Doppler. Tricuspid Valve Mild tricuspid regurgitation by color Doppler. There is mild pulmonary hypertension. The pulmonary pressure (RVSP) is 37 mmHg. Pulmonic Valve Normal pulmonic valve structure and function. Pericardial Effusion No evidence of pericardial effusion. Miscellaneous Visualized portions of the aortic root and ascending aorta appear normal in size. Pleural Effusion No evidence of pleural effusion. Contractility Score LV regional wall motion:(0-Non visualized 1-Normal 2-Hypokinesis 3-Akinesis 4-Dyskinesis 5-Aneurysm) Signature dtt: CHUCKY JARQUIN dtd: 10/29/16 0933 Physician Self Edit
[2016-10-29 01:14] LABS: BASOPHIL % 0.5 %; EOSINOPHIL # 0.4 K/uL (0.0-0.5); EOSINOPHIL % 4.4 %; HEMATOCRIT 37.4 % (33.0-50.0); HEMOGLOBIN 12.8 g/dL (11.0-16.0); IMMATURE GRANULOCYTE % 0.2 %; LYMPHOCYTE # 2.4 K/uL (0.8-4.0); MCH 31.5 pg (27.0-34.0); MCHC 34.2 gm/dL (32.0-36.5); MCV 92.1 fl (83.0-98.0); MONOCYTE # 0.8 K/uL (0.0-1.0); MONOCYTE % 8.7 %; MPV 9.8 fl (9.4-12.4); NEUTROPHIL # (ANC) 5.1 K/uL (1.4-9.0); NEUTROPHIL % 58.2 %; NRBC % 0 /100WBC (0-0.00); PLATELET COUNT 161 K/uL (150-450); RBC 4.06 M/uL (3.50-5.50); WBC 8.7 K/uL (4.0-11.0)
[2016-10-29 01:26] LABS: PROTIME 10.5 SECONDS (9.8-11.4); PTT 26 SECONDS (25-32)
[2016-10-29 01:33] LABS: ALBUMIN 3.5 gm/dL (3.5-5.0); ALK PHOS 58 IU/L (33-138); ALT 25 IU/L (12-78); ANION GAP 10.4 (10.0-19.0); AST 18 IU/L (10-40); BLOOD UREA NITROGEN 44 mg/dL (6-24); CALCIUM 8.3 mg/dL (8.5-10.5); CHLORIDE 105 mMol/L (96-110); CO2 28 mMol/L (22-32); CPK 208 IU/L (35-332); CREATININE 1.7 mg/dL (0.6-1.3); ESTIMATED GFR (MDRD EQUATION) 38; MAGNESIUM 2.4 mg/dL (1.8-2.6); POTASSIUM 3.4 mMol/L (3.7-5.1); SODIUM 140 mMol/L (135-145); TOTAL BILIRUBIN 0.7 mg/dL (0.0-1.5); TOTAL PROTEIN 6.6 g/dL (6.0-8.4)
--- NOTE | 2016-10-29 03:31 | NUR ---
Pt is a 86 year old male admitted to PCU at 0300. Pt experienced some chest pain at 2130 and thought it was indigestion and went to sleep. Around midnight, patient awoke with more chest pain that radiated to his left shoulder. He decided to go to the ER. Upon arrival, patient's chest pain rated at 5/10. Nitro gtt was started, blood pressure went from SBP 170 to SBP 95. Iv fluids started. Morphine 4mg total given for pain. Hx of NE, stents, and hypertension. Allergy to demerol, Percocet, and crestor.
[2016-10-29 03:40] LABS: CPK 184 IU/L (35-332)
[2016-10-29] MEDS ORDERED: HYDROCHLOROTHIA25 MG (03:48)
[2016-10-29] MEDS ORDERED: MAXZIDE-751 TAB PO (03:49)
[2016-10-29] MEDS ORDERED: LIVALO4 MG PO (03:51)
[2016-10-29] MEDS ORDERED: AMLODIPINE BESYL5 MG PO (03:51)
[2016-10-29] MEDS ORDERED: FINASTERIDE5 MG PO (03:52)
[2016-10-29] MEDS ORDERED: ASPIRIN LO-DOSE81 MG PO ×2 (03:53)
[2016-10-29] MEDS ORDERED: FISH OIL 1,0001 EAC1 PO (03:54)
--- NOTE | 2016-10-29 05:06 | NUR ---
Significant Event: A/O x3. afebrile. c/o chest pain. nitro gtt titrated to 15mcg. hep gtt started at 900 units/hr. 4000 unit hep bolus given. ns @75hr. Morphine 2mg given @ 0500 for 7/10 pain. GI cocktail given. cardiology to consult in am. Follow up: continue to monitor per plan of care.
[2016-10-29 08:43] LABS: CPK 151 IU/L (35-332)
[2016-10-29 15:00] LABS: CPK 114 IU/L (35-332)
--- NOTE | 2016-10-29 17:34 | NUR ---
Significant Event: PT HAD VERY LITTLE RELEIF OF PAIN THIS AM EVEN WITH MOROPHINE AND NTG RUNNING. DR NESBITT CONSULTED, HEART CATH LATE THIS AM BACK ABOUT 1345, RT RADIAL APPROACH. R BAND OFF, PT RETURNED TO FLOOR WITH MODERATE SIZED HEMATOMA, MARKED THAT DID NOT CHANGE. R BAND OFF 1630, COABN AND BANDAID APPLIED. CSM GOOD, SATS STABLE, PT SAYS HE FEELS ALOT BETTER. DENIES PAIN NOW Follow up: WILL GO BACK TO [facility] MONDAY FOR ANOTHER STENT
--- NOTE | 2016-10-29 20:00 | NUR ---
Patient sent down for emergency heart cath during 1899 assessment time. Unable to do full assessment on patient.
[2016-10-30 03:59] LABS: ALBUMIN 2.8 gm/dL (3.5-5.0); ANION GAP 11.9 (10.0-19.0); CALCIUM 7.6 mg/dL (8.5-10.5); CREATININE 1.6 mg/dL (0.6-1.3); POTASSIUM 3.9 mMol/L (3.7-5.1); TOTAL PROTEIN 5.8 g/dL (6.0-8.4)
--- NOTE | 2016-10-30 04:58 | NUR ---
Significant Event: A/O x3. afebrile. No chest pain after heart cath. some back pain post heart cath due to bedrest. gave tylenol x1, morphine 2mg x1. rt groin site c/d/i gauze and tegaderm. 1+ pedal pulses. 600 uop. ns @ 100/hr for 1 L. Follow up: continue to monitor per plan of care.
--- NOTE | 2016-10-30 16:38 | NUR ---
Significant Event: RT GROIN AND RT WRIST BOTH CLEAN DRY AND INTACT. PT HAS BEEN UP WALKIING 3x'S IN HALLS WITH STAFF AND . STEADY ON FEET, DENIES CHEST PAIN BUT IS C/O SHOULDER AND ARM PAIN, SAYS THIS IS NOTHING NEW, HAS THIS AT [facility] AND IT IS NOTHING LIKE THE PAIN HE HAD YESTERDAY, DENIES NEEDS. Follow up: HOME IN THE AM
--- NOTE | 2016-10-31 05:08 | NUR ---
Significant Event: A/O x3. Afebrile. Denies pain. Around 0300 or so patient woke up unable to "catch his breath". Oxygen saturations mid 90s on RA, RN applied 1L O2. VSS. Has been in [facility] since 1739 on 10/30/16. Since rhythm change, pt states he sometimes feels like his "heart is racing" and getting hot/cold flashes. Rates 70-90s. coumadin 5mg daily started. Follow up: continue to monitor per plan of care.
[2016-10-31 05:24] LABS: BASOPHIL % 0.2 %; EOSINOPHIL % 0.4 %; HEMATOCRIT 33.3 % (33.0-50.0); HEMOGLOBIN 11.3 g/dL (11.0-16.0); IMMATURE GRANULOCYTE % 0.2 %; LYMPHOCYTE % 22.3 %; MCH 31.1 pg (27.0-34.0); MCHC 33.9 gm/dL (32.0-36.5); MCV 91.7 fl (83.0-98.0); MONOCYTE # 0.8 K/uL (0.0-1.0); MONOCYTE % 9.1 %; MPV 10.3 fl (9.4-12.4); NEUTROPHIL # (ANC) 6.1 K/uL (1.4-9.0); NEUTROPHIL % 67.8 %; NRBC % 0 /100WBC (0-0.00); PLATELET COUNT 146 K/uL (150-450); RBC 3.63 M/uL (3.50-5.50); RDW-CV 13.5 % (11.9-14.6); WBC 8.9 K/uL (4.0-11.0)
[2016-10-31 05:43] LABS: ANION GAP 10.7 (10.0-19.0); CALCIUM 7.8 mg/dL (8.5-10.5); CREATININE 1.7 mg/dL (0.6-1.3); POTASSIUM 3.7 mMol/L (3.7-5.1)
--- NOTE | 2016-10-31 17:01 | NUR ---
Significant Event: pt had echo done. Heparin at 1000units/hr, next ptthp at 1820. Coumadin 5mg given. Plavix 300mg this am per dr Carter. CXR done this afternoon for short of breath. Late am pt felt alittle dizzy, had conduction changes and flipped back to NSR rates 70s. 02 rom air. Follow up:home tomorrow
--- NOTE | 2016-11-01 04:27 | NUR ---
Significant Event: A&Ox3, VSS on room air. Ambulated in halls at HS with 1PA, GB/walker. Denies numbness/tingling. No chest pain this shift. Patient states he can feel his heart "skip a beat" sometimes. NSR on monitor. Transfers with 1-pa to SBA assist. Heparin gtt running at 1000 units/hr. Patient has had two therapeutic leverls, nest PTTHP is at 0700. continue to monitor Follow up:
[2016-11-01 05:41] LABS: INR - (THERAPEUTIC) 1.19 (0.92-1.07); PROTIME 12.5 SECONDS (9.8-11.4)
[2016-11-01 05:50] LABS: ANION GAP 10.4 (10.0-19.0); CALCIUM 7.8 mg/dL (8.5-10.5); CREATININE 1.7 mg/dL (0.6-1.3); POTASSIUM 3.4 mMol/L (3.7-5.1)
[2016-11-01] MEDS ORDERED: PLAVIX75 MG PO (10:31)
[2016-11-01] MEDS ORDERED: VASOTEC2.5 MG PO (10:33)
[2016-11-01] MEDS ORDERED: LOPRESSOR25 MG PO (10:34)
[2016-11-01] MEDS ORDERED: COUMADIN ** IA5 MG PO (10:39)
[2016-11-01] MEDS ORDERED: TYLENOL325 MG PO (10:39)
--- NOTE | 2016-11-01 13:38 | NUR ---
d-ariel cristina dc i-nurse did teaching on all meds with new ones explained, info printed on meds, rx given, appts to be set by , inr check thur level1.1today, extra k+given today, jessenia has good uop, No c/o pain or sob, pt will check his bp and pulse at home and normals explained, radial normal with new bandaid on, r)groin soft but bruised dressing removed, teaching done on cath/radial/groin. r-pt and family state understanding p-nurse took pt out per wc
== END 2016-11-01 12:30 | disposition disaster alternative care site (69) | DRG 246 ==
LOC: GMED 00:51 → GPCU 02:18
PROVIDERS: Emergency Medicine; Internal Medicine Interventional Cardiology; ADMIT Obstetrics & Gynecology Obstetrics
PROC: B2111ZZ Fluoroscopy of Multiple Coronary Arteries using Low Osmolar Contrast (ICD-10-PCS; principal; 2016-10-29)
PROC: 4A023N7 Measurement of Cardiac Sampling and Pressure, Left Heart, Percutaneous Approach (ICD-10-PCS; principal; 2016-10-29)
PROC: 027034Z Dilation of Coronary Artery, One Artery with Drug-eluting Intraluminal Device, Percutaneous Approach (ICD-10-PCS; principal; 2016-10-29)
DX: I25.110 Atherosclerotic heart disease of native coronary artery with unstable angina pectoris (principal); I21.4 Non-ST elevation (NSTEMI) myocardial infarction; I48.91 Unspecified atrial fibrillation; N18.3 Chronic kidney disease, stage 3 (moderate); I12.9 Hypertensive chronic kidney disease with stage 1 through stage 4 chronic kidney disease, or unspecified chronic kidney disease; E78.5 Hyperlipidemia, unspecified
CPT/HCPCS: C1725; C1769; C1874; C1887; C9600; C9601; J0583; J1644; J1940; J2250; J2270; J2405; J3010; J7030; J7060

== ENCOUNTER → 2016-11-29 | Outpatient (CLI) | payer MEDICARE, OTHER ==
[~2016-11-29] MED LIST: AMLODIPINE BESYL5 MG PO; ASPIRIN LO-DOSE81 MG PO; COUMADIN ** IA5 MG PO; FINASTERIDE5 MG PO; FISH OIL 1,0001 EAC1 PO; HYDROCHLOROTHIA25 MG; LIVALO4 MG PO; LOPRESSOR25 MG PO; MAXZIDE-751 TAB PO; PLAVIX75 MG PO; TYLENOL325 MG PO; VASOTEC2.5 MG PO
[2016-11-29 09:20] LABS: ALBUMIN 3.5 gm/dL (3.5-5.0); ANION GAP 10.2 (10.0-19.0); CALCIUM 8.6 mg/dL (8.5-10.5); CREATININE 1.9 mg/dL (0.6-1.3); POTASSIUM 4.2 mMol/L (3.7-5.1)
[2016-11-29 09:22] LABS: TOTAL BILIRUBIN 0.6 mg/dL (0.0-1.5)
== END ==
LOC: LNHI 08:59
PROVIDERS: Internal Medicine Interventional Cardiology
DX: I11.0 Hypertensive heart disease with heart failure (principal); I25.10 Atherosclerotic heart disease of native coronary artery without angina pectoris; I50.32 Chronic diastolic (congestive) heart failure